=== PATIENT | female | born 1995 | race Caucasian/White ===

== ENCOUNTER 2018-12-11 20:05 | Emergency (ER) | payer SELFPAY ==
[2018-12-11] MEDS ORDERED: Lidocaine 1% 20 ML MDV INJECT ONE (20:06)
--- NOTE | 2018-12-11 21:05 | EDM.PDOC ---
ED HPI GENERAL MEDICAL PROBLEM - General Chief Complaint: Laceration Stated Complaint: CUT L LOWER LEG Time Seen by Provider: 12/11/18 20:45 Source of Information: Reports: Patient History Limitations: Reports: No Limitations - History of Present Illness INITIAL COMMENTS - FREE TEXT/NARRATIVE: Awilda comes into [facility] ED with a minor laceration to the L lower leg. She was sawing some wood when the saw slipped and injured to L leg. There is FROM, CMS intact, last tetanus vax 3 years ago. L medial ankle Pain Score (Numeric/FACES): 2 - Related Data Allergies Allergy/AdvReac Type Severity Reaction Status Date / Time No Known Allergies Allergy Verified 12/11/18 20:29 Home Meds: Home Meds Albuterol Sulfate [Proventil Hfa] 2 puff IH Q4H PRN 03/25/16 [History] Multivitamin [Gummi Bear Multivitamin] 1 tab PO DAILY 03/25/16 [History] Tetrahydrozoline HCl [Visine] 2 drop EYEBOTH WEEKLY PRN 03/25/16 [History] Past Medical History - Past Health History Medical/Surgical History: Denies Medical/Surgical History HEENT History: Reports: Impaired Vision Cardiovascular History: Reports: Other (See Below) Other Cardiovascular History: Irregular heart rate Respiratory History: Reports: Asthma Gastrointestinal History: Reports: GERD Other Gastrointestinal History: upper abdominal pain Genitourinary History: Reports: Other (See Below) Other Genitourinary History: has to void but can't 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: Neurological History: Reports: Migraines Psychiatric History: Reports: Anxiety, Depression, Learning Disability Other Psychiatric History: dyslexia Endocrine/Metabolic History: Reports: Obesity/BMI 30+ - Infectious Disease History Infectious Disease History: Reports: None - Past Surgical History HEENT Surgical History: Reports: Adenoidectomy, Myringotomy w Tube(s), Oral Surgery, Tonsillectomy Respiratory Surgical History: Reports: None GI Surgical History: Reports: Cholecystectomy Social & Family History - Family History Family Medical History: Noncontributory HEENT: Reports: Impaired Vision Respiratory: Reports: COPD GI: Reports: Other (See Below) Other GI Family History: Father has a colostomy for colon CA : Reports: Other (See Below) Other Family History: Father has a urostomy for bladder CA Neurological: Reports: Seizure Endocrine/Metabolic: Reports: Diabetes, Type I, Diabetes, type II Oncologic: Reports: Bladder, Colon, Thyroid - Tobacco Use Smoking Status *Q: Never Smoker - Caffeine Use Caffeine Use: Reports: None - Recreational Drug Use Recreational Drug Use: No ED ROS GENERAL - Review of Systems Review Of Systems: ROS reveals no pertinent complaints other than HPI. ED EXAM, SKIN/RASH Exam: See Below Exam Limited By: No Limitations General Appearance: Alert, WD/WN, No Apparent Distress Head: Atraumatic, Normocephalic Neck: Normal Inspection Respiratory/Chest: Lungs Clear Cardiovascular: Regular Rate, Rhythm Back Exam: Normal Inspection Extremities: Normal Range of Motion, Other (1.2 cm laceration to the lower L leg , no active bleeding) Neurological: Alert, Oriented, CN II-XII Intact, Normal Cognition, Normal Gait, No Motor/Sensory Deficits Psychiatric: Normal Affect, Normal Mood Skin: Warm, Dry, Normal Color, Wound/Incision (1.2 cm laceration to L lower leg) ED SKIN PROCEDURES - Laceration/Wound Repair Left Lower Midline Leg Lac/Wound length In cm: 1.2 Appearance: Linear, Clean Distal NVT: Neuro & Vascular Intact Anesthetic Type: Local Local Anesthesia - Lidocaine (Xylocaine): 1% Plain Local Anesthetic Volume: 3cc Skin Prep: Chlorhexidine (Hibiciens) Exploration/Debridement/Repair: Wound Explored, No Foreign Material Found Closed with: Sutures Suture Size: 4-0 # of Sutures: 3 Suture Type: Nylon, Interrupted, Simple Drain Placement: No Sterile Dressing Applied: Nurse Tetanus Status Addressed: Yes Complications: No Course - Vital Signs Text/Narrative:: Patient tolerated procedure well. Last Recorded V/S: Last Vital Signs Temp 36.6 C 12/11/18 20:20 Pulse 95 12/11/18 20:20 Resp 18 12/11/18 20:20 BP 147/82 H 12/11/18 20:20 Pulse Ox 99 12/11/18 20:20 Departure - Departure Time of Disposition: 21:04 Disposition: Home, Self-Care 01 Condition: Good Clinical Impression: Laceration of left lower leg Qualifiers: Encounter type: initial encounter Qualified Code(s): S81.812A - Laceration without foreign body, left lower leg, initial encounter - Discharge Information *PRESCRIPTION DRUG MONITORING PROGRAM REVIEWED*: Not Applicable *COPY OF PRESCRIPTION DRUG MONITORING REPORT IN PATIENT EVELINA: Not Applicable - Problem List & Annotations (1) Laceration of left lower leg SNOMED Code(s): 157226076 Code(s): S81.812A - LACERATION WITHOUT FOREIGN BODY, LEFT LOWER LEG, INIT ENCNTR Status: Acute Current Visit: Yes Annotation/Comment:: Routine wound cares, SR in 10 days. - Problem List Review Problem List Initiated/Reviewed/Updated: Yes - Assessment/Plan Plan: Follow up with PCP in 10 days.
[2018-12-11 21:22] VITALS: BP 132/83
== END 2018-12-11 21:14 | disposition home or self-care (01) ==
LOC: FB.ED 20:05
DX: S81.812A Laceration without foreign body, left lower leg, initial encounter (principal); J45.909 Unspecified asthma, uncomplicated; F41.9 Anxiety disorder, unspecified; F32.9 Major depressive disorder, single episode, unspecified; Z79.899 Other long term (current) drug therapy; W22.8XXA Striking against or struck by other objects, initial encounter
CPT/HCPCS: 12001; 12011; 99282; J2001

== ENCOUNTER 2019-03-20 11:38 | Emergency (ER) | payer MEDICAID, OTHER ==
[2019-03-20 12:09] VITALS: BP 150/80; PULSE 82
[2019-03-20] MEDS ORDERED: Ondansetron 4 MG Tab.DIS PO ONE (12:30)
[2019-03-20] MEDS ORDERED: Atropine/Diphenoxylate 0.025-2.5 MG Tab PO ONE (12:30)
--- NOTE | 2019-03-20 12:39 | EDM.PDOC ---
ED HPI GENERAL MEDICAL PROBLEM - General Chief Complaint: Abdominal Pain Stated Complaint: VOMITTING, DIARREA Time Seen by Provider: 03/20/19 12:20 Source of Information: Reports: Patient, Family History Limitations: Reports: No Limitations - History of Present Illness INITIAL COMMENTS - FREE TEXT/NARRATIVE: Awilda comes into [facility] ED with a 3 day hx of diarrhea and some vomiting. There has been some epigastric discomfort that waxes and wanes, and remains anterior in location. There is no known exposure, no visible BRB or mucous in the stools , or BRB in the emesis of partially digested foods and beverages. Her family is asx. [facility] for epigastric sxs, and advised Prilosec OTC for 2 weeks which did help. Bilateral Abdomen Pain Score (Numeric/FACES): 9 - Related Data Allergies Allergy/AdvReac Type Severity Reaction Status Date / Time No Known Allergies Allergy Verified 12/11/18 20:29 Home Meds: Home Meds Albuterol Sulfate [Proventil Hfa] 2 puff IH Q4H PRN 03/25/16 [History] Multivitamin [Gummi Bear Multivitamin] 1 tab PO DAILY 03/25/16 [History] Tetrahydrozoline HCl [Visine] 2 drop EYEBOTH WEEKLY PRN 03/25/16 [History] Omeprazole 20 mg PO DAILY 03/20/19 [History] Ondansetron [Zofran ODT] 4 mg PO Q6H PRN #14 tab.dis 03/20/19 [Rx] Past Medical History - Past Health History Medical/Surgical History: Denies Medical/Surgical History HEENT History: Reports: Impaired Vision Cardiovascular History: Reports: Other (See Below) Other Cardiovascular History: Irregular heart rate Respiratory History: Reports: Asthma Gastrointestinal History: Reports: GERD Other Gastrointestinal History: upper abdominal pain Genitourinary History: Reports: Other (See Below) Other Genitourinary History: has to void but can't 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 UNCLAIMED PROPERTY MANAGER History: Neurological History: Reports: Migraines Psychiatric History: Reports: Anxiety, Depression, Learning Disability Other Psychiatric History: dyslexia Endocrine/Metabolic History: Reports: Obesity/BMI 30+ - Infectious Disease History Infectious Disease History: Reports: None - Past Surgical History HEENT Surgical History: Reports: Adenoidectomy, Myringotomy w Tube(s), Oral Surgery, Tonsillectomy Respiratory Surgical History: Reports: None GI Surgical History: Reports: Cholecystectomy Social & Family History - Family History Family Medical History: Noncontributory HEENT: Reports: Impaired Vision Respiratory: Reports: COPD GI: Reports: Other (See Below) Other GI Family History: Father has a colostomy for colon CA : Reports: Other (See Below) Other Family History: Father has a urostomy for bladder CA Neurological: Reports: Seizure Endocrine/Metabolic: Reports: Diabetes, Type I, Diabetes, type II Oncologic: Reports: Bladder, Colon, Thyroid - Caffeine Use Caffeine Use: Reports: None ED ROS GENERAL - Review of Systems Review Of Systems: See Below Constitutional: Reports: Malaise, Decreased Appetite HEENT: Reports: No Symptoms Respiratory: Reports: No Symptoms Cardiovascular: Reports: No Symptoms Endocrine: Reports: No Symptoms GI/Abdominal: Reports: Abdominal Pain, Diarrhea, Decreased Appetite, Vomiting : Reports: No Symptoms Musculoskeletal: Reports: No Symptoms Skin: Reports: No Symptoms Neurological: Reports: No Symptoms Hematologic/Lymphatic: Reports: No Symptoms Immunologic: Reports: No Symptoms ED EXAM, GI/ABD - Physical Exam Exam: See Below Exam Limited By: No Limitations General Appearance: Alert, WD/WN, No Apparent Distress, Obese Eyes: Bilateral: Normal Appearance, EOMI Ears: Normal External Exam Nose: Normal Inspection Throat/Mouth: Normal Inspection, Normal Oropharynx, Normal Voice Head: Normocephalic Neck: Normal Inspection, Supple, Non-Tender, Full Range of Motion Respiratory/Chest: Lungs Clear, Normal Breath Sounds Cardiovascular: Regular Rate, Rhythm, No Murmur GI/Abdominal Exam: Normal Bowel Sounds, Soft, No Organomegaly, No Distention, No Mass, Tender (mild epigastric tenderness) (Female) Exam: Deferred Rectal (Female) Exam: Deferred Back Exam: Normal Inspection Extremities: Normal Inspection Neurological: Alert, Oriented, CN II-XII Intact, Normal Cognition, Normal Gait, No Motor/Sensory Deficits Psychiatric: Normal Affect, Normal Mood Skin Exam: Warm, Dry, Intact, Normal Color, No Rash Lymphatic: No Adenopathy Course - Vital Signs Text/Narrative:: Following assessment at the ED, I administered Zofran ODT 4 mg SL and Lomotil 2.5 mg tab po pending results of screening labwork, all baseline. She voided twice during the ED visit, but experienced no further stooling. Findings appear consistent with GE at this time. Last Recorded V/S: Last Vital Signs Temp 36.8 C 03/20/19 11:45 Pulse 82 03/20/19 11:45 Resp 18 03/20/19 11:45 BP 150/80 H 03/20/19 11:45 Pulse Ox 98 03/20/19 11:45 - Orders/Labs/Meds Orders: Active Orders 24 hr Category Date Time Status AMYLASE [CHEM] Stat Lab 03/20/19 13:36 Ordered OCCULT BLOOD SCREEN [OP] Stat Lab 03/20/19 12:31 Ordered Labs: Laboratory Tests 03/20/19 03/20/19 03/20/19 Range/Units 12:55 13:05 13:05 WBC 8.2 (4.5-12.0) X10-3/uL RBC 5.03 (3.23-5.20) x10(6)uL Hgb 15.9 H (11.5-15.5) g/dL Hct 46.6 (30.0-51.3) % MCV 92.5 (80-96) fL MCH 31.5 (27.7-33.6) pg MCHC 34.1 (32.2-35.4) g/dL RDW 12.1 (11.5-15.5) % Plt Count 352 (125-369) X10(3)uL MPV 7.9 (7.4-10.4) fL Neut % (Auto) 59.5 (46-82) % Lymph % (Auto) 27.7 (13-37) % Mc[place]osh % (Auto) 9.0 (4-12) % Eos % (Auto) 4 (1.0-5.0) % Baso % (Auto) 0 (0-2) % Neut # (Auto) 4.8 (1.6-8.3) # Lymph # (Auto) 2.3 (0.6-5.0) # Mcintosh # (Auto) 0.7 (0.0-1.3) # Eos # (Auto) 0.3 (0.0-0.8) # Baso # (Auto) 0.0 (0.0-0.2) # Sodium 142 (135-145) mmol/L Potassium 4.0 (3.5-5.3) mmol/L Chloride 104 (100-110) mmol/L Carbon Dioxide 28 (21-32) mmol/L BUN 13 (7-18) mg/dL Creatinine 0.8 (0.55-1.02) mg/dL Est Cr Clr Drug Dosing 85.02 mL/min Estimated GFR (MDRD) > 60 (>60) BUN/Creatinine Ratio 16.3 (9-20) Glucose 97 (80-116) mg/dL Calcium 9.7 (8.6-10.2) mg/dL C-Reactive Protein (0.5-0.9) mg/dL HCG, Quant (<5) mIU/mL Urine Color Yellow (YELLOW) Urine Appearance Slightly cloudy (CLEAR) Urine pH 5.0 (5.0-6.5) Ur Specific [place] 1.020 (1.010-1.025) Urine Protein Negative (NEGATIVE) mg/dL Urine Glucose (UA) Normal (NORMAL) mg/dL Urine Ketones Negative (NEGATIVE) mg/dL Urine Occult Blood Negative (NEGATIVE) Urine Nitrite Negative (NEGATIVE) Urine Bilirubin Negative (NEGATIVE) Urine Urobilinogen Normal (NEGATIVE) mg/dL Ur Leukocyte Esterase Moderate H (NEGATIVE) Urine RBC 0-5 (0-5) Urine WBC 5-10 H (0-5) Ur Squamous Epith Cells Moderate H (NS,R,O) Urine Bacteria Few H (NS) 03/20/19 03/20/19 Range/Units 13:05 13:05 WBC (4.5-12.0) X10-3/uL RBC (3.23-5.20) x10(6)uL Hgb (11.5-15.5) g/dL Hct (30.0-51.3) % MCV (80-96) fL MCH (27.7-33.6) pg MCHC (32.2-35.4) g/dL RDW (11.5-15.5) % Plt Count (125-369) X10(3)uL MPV (7.4-10.4) fL Neut % (Auto) (46-82) % Lymph % (Auto) (13-37) % [place]osh % (Auto) (4-12) % Eos % (Auto) (1.0-5.0) % Baso % (Auto) (0-2) % Neut # (Auto) (1.6-8.3) # Lymph # (Auto) (0.6-5.0) # Mcintosh # (Auto) (0.0-1.3) # Eos # (Auto) (0.0-0.8) # Baso # (Auto) (0.0-0.2) # Sodium (135-145) mmol/L Potassium (3.5-5.3) mmol/L Chloride (100-110) mmol/L Carbon Dioxide (21-32) mmol/L BUN (7-18) mg/dL Creatinine (0.55-1.02) mg/dL Est Cr Clr Drug Dosing mL/min Estimated GFR (MDRD) (>60) BUN/Creatinine Ratio (9-20) Glucose (80-116) mg/dL Calcium (8.6-10.2) mg/dL C-Reactive Protein < 0.2 L (0.5-0.9) mg/dL HCG, Quant < 5 L (<5) mIU/mL Urine Color (YELLOW) Urine Appearance (CLEAR) Urine pH (5.0-6.5) Ur Specific [place] (1.010-1.025) Urine Protein (NEGATIVE) mg/dL Urine Glucose (UA) (NORMAL) mg/dL Urine Ketones (NEGATIVE) mg/dL Urine Occult Blood (NEGATIVE) Urine Nitrite (NEGATIVE) Urine Bilirubin (NEGATIVE) Urine Urobilinogen (NEGATIVE) mg/dL Ur Leukocyte Esterase (NEGATIVE) Urine RBC (0-5) Urine WBC (0-5) Ur Squamous Epith Cells (NS,R,O) Urine Bacteria (NS) Meds: Medications Discontinued Medications Generic Name Dose Route Start Last Admin Trade Name Freq PRN Reason Stop Dose Admin Diphenoxylate HCl/Atropine 1 tab 03/20/19 12:30 03/20/19 12:39 Lomotil 0.025-2.5 Mg PO 03/20/19 12:31 1 tab ONETIME ONE Administration Ondansetron HCl 4 mg 03/20/19 12:30 03/20/19 12:36 Zofran Odt PO 03/20/19 12:31 4 mg ONETIME ONE Administration Departure - Departure Time of Disposition: 13:56 Disposition: Home, Self-Care 01 Condition: Good Clinical Impression: Gastroenteritis - Discharge Information *PRESCRIPTION DRUG MONITORING PROGRAM REVIEWED*: Not Applicable *COPY OF PRESCRIPTION DRUG MONITORING REPORT IN PATIENT EVELINA: Not Applicable Prescriptions: Ondansetron [Zofran ODT] 4 mg PO Q6H PRN #14 tab.dis PRN Reason: Nausea/Vomiting Referrals: PCP,None [Primary Care Provider] - Forms: ED Department Discharge - Problem List & Annotations (1) Gastroenteritis SNOMED Code(s): 38061914 Code(s): K52.9 - NONINFECTIVE GASTROENTERITIS AND COLITIS, UNSPECIFIED Status: Acute Current Visit: Yes Annotation/Comment:: I dispensed Zofran ODT 4 mg for nausea and vomiting, consider Imodium tabs for diarrhea, and may continue Prilosec OTC 20 mg as directed for GERD. Hydration is suggested in the interim. - Problem List Review Problem List Initiated/Reviewed/Updated: Yes - My Orders Last 24 Hours: My Active Orders 03/20/19 12:31 OCCULT BLOOD SCREEN [OP] Stat 03/20/19 13:36 AMYLASE [CHEM] Stat - Assessment/Plan Last 24 Hours: My Active Orders 03/20/19 12:31 OCCULT BLOOD SCREEN [OP] Stat 03/20/19 13:36 AMYLASE [CHEM] Stat Plan: Follow up with PCP if needed or sxs persist.
== END 2019-03-20 14:10 | disposition home or self-care (01) ==
LOC: FB.ED 11:38
DX: K52.9 Noninfective gastroenteritis and colitis, unspecified (principal); J45.909 Unspecified asthma, uncomplicated; K21.9 Gastro-esophageal reflux disease without esophagitis; F41.9 Anxiety disorder, unspecified; F32.9 Major depressive disorder, single episode, unspecified; E66.9 Obesity, unspecified; Z68.37 Body mass index [BMI] 37.0-37.9, adult; Z79.899 Other long term (current) drug therapy
CPT/HCPCS: 36415; 80048; 81001; 82150; 84702; 85025; 86140; 99282; A9270; 99284

== ENCOUNTER 2019-04-12 19:33 | Emergency (ER) | payer MEDICAID, OTHER ==
--- NOTE | 2019-04-12 19:57 | EDM.PDOC ---
ED HPI GENERAL MEDICAL PROBLEM - General Stated Complaint: CHEST PAIN Time Seen by Provider: 04/12/19 19:54 Source of Information: Reports: Patient History Limitations: Reports: No Limitations - History of Present Illness INITIAL COMMENTS - FREE TEXT/NARRATIVE: This a 24-year-old female complaining of retrosternal chest pain. Moderate pain but reduce it back deficit help, maybe related to exertion and lifting in a new [employer] job that she started 2 days ago. She denies headache shortness of breath fever or chills. She is previously healthy, does not smoke and does not take any prescriptions including oral contraceptives. mid chest Pain Score (Numeric/FACES): 7 - Related Data Allergies Allergy/AdvReac Type Severity Reaction Status Date / Time No Known Allergies Allergy Verified 04/12/19 20:18 Home Meds: Home Meds Albuterol Sulfate [Proventil Hfa] 2 puff IH Q4H PRN 03/25/16 [History] Multivitamin [Gummi Bear Multivitamin] 1 tab PO DAILY 03/25/16 [History] Tetrahydrozoline HCl [Visine] 2 drop EYEBOTH WEEKLY PRN 03/25/16 [History] Omeprazole 20 mg PO DAILY 03/20/19 [History] Ondansetron [Zofran ODT] 4 mg PO Q6H PRN #14 tab.dis 03/20/19 [Rx] Past Medical History - Past Health History Medical/Surgical History: Denies Medical/Surgical History HEENT History: Reports: Impaired Vision Cardiovascular History: Reports: Other (See Below) Other Cardiovascular History: Irregular heart rate Respiratory History: Reports: Asthma Gastrointestinal History: Reports: GERD Other Gastrointestinal History: upper abdominal pain Genitourinary History: Reports: Other (See Below) Other Genitourinary History: has to void but can't 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: Neurological History: Reports: Migraines Psychiatric History: Reports: Anxiety, Depression, Learning Disability Other Psychiatric History: dyslexia Endocrine/Metabolic History: Reports: Obesity/BMI 30+ - Infectious Disease History Infectious Disease History: Reports: None - Past Surgical History HEENT Surgical History: Reports: Adenoidectomy, Myringotomy w Tube(s), Oral Surgery, Tonsillectomy Respiratory Surgical History: Reports: None GI Surgical History: Reports: Cholecystectomy Social & Family History - Family History Family Medical History: Noncontributory HEENT: Reports: Impaired Vision Respiratory: Reports: COPD GI: Reports: Other (See Below) Other GI Family History: Father has a colostomy for colon CA : Reports: Other (See Below) Other Family History: Father has a urostomy for bladder CA Neurological: Reports: Seizure Endocrine/Metabolic: Reports: Diabetes, Type I, Diabetes, type II Oncologic: Reports: Bladder, Colon, Thyroid - Caffeine Use Caffeine Use: Reports: None ED ROS GENERAL - Review of Systems Review Of Systems: ROS reveals no pertinent complaints other than HPI. ED EXAM, GENERAL - Physical Exam Exam: See Below Exam Limited By: No Limitations General Appearance: Alert, WD/WN Ears: Normal External Exam Ear Exam: Bilateral Ear: Auricle Normal, Canal Normal, TM normal Head: Atraumatic Neck: Normal Inspection Respiratory/Chest: No Respiratory Distress, Normal Breath Sounds, No Accessory Muscle Use, Other (Tender sternum on palpation). No: Respiratory Distress, Rhonchi, Splinting Cardiovascular: Normal Peripheral Pulses GI/Abdominal: Normal Bowel Sounds Psychiatric: Normal Affect Skin Exam: Warm EKG INTERPRETATION Rhythm: NSR Course - Vital Signs Last Recorded V/S: Last Vital Signs Temp 98.0 F 04/12/19 19:33 Pulse 75 04/12/19 19:33 Resp 14 04/12/19 19:33 BP 121/66 04/12/19 19:33 Pulse Ox 98 04/12/19 19:33 - Orders/Labs/Meds Orders: Active Orders 24 hr Category Date Time Status EKG Documentation Completion [RC] ASDIRECTED Care 04/12/19 19:54 Active EKG Documentation Completion [RC] ASDIRECTED Care 04/12/19 19:54 Active CXR [Chest 2V] [CR] Stat Exams 04/12/19 19:57 Ordered Chest 1V Frontal [CR] Stat Exams 04/12/19 19:53 Stop Req EKG 12 Lead [EK] Routine Ther 04/12/19 19:54 Ordered Labs: Laboratory Tests 04/12/19 04/12/19 04/12/19 Range/Units 20:00 20:00 20:00 WBC 12.0 (4.5-12.0) X10-3/uL RBC 4.92 (3.23-5.20) x10(6)uL Hgb 15.0 (11.5-15.5) g/dL Hct 44.9 (30.0-51.3) % MCV 91.2 (80-96) fL MCH 30.5 (27.7-33.6) pg MCHC 33.4 (32.2-35.4) g/dL RDW 11.7 (11.5-15.5) % Plt Count 122 L (125-369) X10(3)uL MPV 8.3 (7.4-10.4) fL Neut % (Auto) 49.4 (46-82) % Lymph % (Auto) 37.4 H (13-37) % [place] % (Auto) 8.5 (4-12) % Eos % (Auto) 4 (1.0-5.0) % Baso % (Auto) 1 (0-2) % Neut # (Auto) 5.9 (1.6-8.3) # Lymph # (Auto) 4.5 (0.6-5.0) # [place] # (Auto) 1.0 (0.0-1.3) # Eos # (Auto) 0.5 (0.0-0.8) # Baso # (Auto) 0.1 (0.0-0.2) # D-Dimer, Quantitative (0.0-0.59) mg/LFEU Sodium 140 (135-145) mmol/L Potassium 3.6 (3.5-5.3) mmol/L Chloride 104 (100-110) mmol/L Carbon Dioxide 27 (21-32) mmol/L BUN 17 (7-18) mg/dL Creatinine 1.0 (0.55-1.02) mg/dL Est Cr Clr Drug Dosing 68.02 mL/min Estimated GFR (MDRD) > 60 (>60) BUN/Creatinine Ratio 17.0 (9-20) Glucose 96 (80-116) mg/dL Calcium 9.2 (8.6-10.2) mg/dL Total Bilirubin 0.5 (0.1-1.3) mg/dL AST 19 (5-25) IU/L ALT 43 H (12-36) U/L Alkaline Phosphatase 61 (56-112) IU/L Troponin I < 0.017 L (<0.017-0.056) ng/mL Total Protein 7.3 (6.0-8.0) g/dL Albumin 3.9 (3.5-5.2) g/dL Globulin 3.4 g/dL Albumin/Globulin Ratio 1.2 04/12/19 Range/Units 20:00 WBC (4.5-12.0) X10-3/uL RBC (3.23-5.20) x10(6)uL Hgb (11.5-15.5) g/dL Hct (30.0-51.3) % MCV (80-96) fL MCH (27.7-33.6) pg MCHC (32.2-35.4) g/dL RDW (11.5-15.5) % Plt Count (125-369) X10(3)uL MPV (7.4-10.4) fL Neut % (Auto) (46-82) % Lymph % (Auto) (13-37) % [place] % (Auto) (4-12) % Eos % (Auto) (1.0-5.0) % Baso % (Auto) (0-2) % Neut # (Auto) (1.6-8.3) # Lymph # (Auto) (0.6-5.0) # [place] # (Auto) (0.0-1.3) # Eos # (Auto) (0.0-0.8) # Baso # (Auto) (0.0-0.2) # D-Dimer, Quantitative 0.21 (0.0-0.59) mg/LFEU Sodium (135-145) mmol/L Potassium (3.5-5.3) mmol/L Chloride (100-110) mmol/L Carbon Dioxide (21-32) mmol/L BUN (7-18) mg/dL Creatinine (0.55-1.02) mg/dL Est Cr Clr Drug Dosing mL/min Estimated GFR (MDRD) (>60) BUN/Creatinine Ratio (9-20) Glucose (80-116) mg/dL Calcium (8.6-10.2) mg/dL Total Bilirubin (0.1-1.3) mg/dL AST (5-25) IU/L ALT (12-36) U/L Alkaline Phosphatase (56-112) IU/L Troponin I (<0.017-0.056) ng/mL Total Protein (6.0-8.0) g/dL Albumin (3.5-5.2) g/dL Globulin g/dL Albumin/Globulin Ratio Departure - Departure Time of Disposition: 20:34 Disposition: Home, Self-Care 01 Condition: Good Clinical Impression: Atypical chest pain Referrals: PCP,None [Primary Care Provider] - - Problem List & Annotations (1) Atypical chest pain SNOMED Code(s): 849953598 Code(s): R07.89 - OTHER CHEST PAIN Status: Acute Current Visit: Yes - Problem List Review Problem List Initiated/Reviewed/Updated: Yes - My Orders Last 24 Hours: My Active Orders 04/12/19 19:53 Chest 1V Frontal [CR] Stat 04/12/19 19:54 EKG Documentation Completion [RC] ASDIRECTED EKG Documentation Completion [RC] ASDIRECTED EKG 12 Lead [EK] Routine 04/12/19 19:57 CXR [Chest 2V] [CR] Stat - Assessment/Plan Last 24 Hours: My Active Orders 04/12/19 19:53 Chest 1V Frontal [CR] Stat 04/12/19 19:54 EKG Documentation Completion [RC] ASDIRECTED EKG Documentation Completion [RC] ASDIRECTED EKG 12 Lead [EK] Routine 04/12/19 19:57 CXR [Chest 2V] [CR] Stat Plan: CXR and all labs were negative. So was EKG. I discharged her,advised on NSAIDs. It odes sound musculoskeletal
[2019-04-12 21:05] VITALS: BP 118/74; PULSE 76
--- NOTE | 2019-04-13 10:31 | CR ---
INDICATION: Chest pain. CHEST: PA and lateral views of the chest were obtained 04/12/19 - no comparisons. The heart, mediastinum, and bony thorax were unremarkable. Overlying EKG leads are noted. An active infiltrate or effusion was not identified. Evidence of exogenous obesity is noted. IMPRESSION: No acute process. Report was called to Dr. Mondragon at approximately 2105 hours on 04/12/19. [facility]
== END 2019-04-12 20:47 | disposition home or self-care (01) ==
LOC: FB.ED 19:33
DX: R07.89 Other chest pain (principal); K21.9 Gastro-esophageal reflux disease without esophagitis; F41.9 Anxiety disorder, unspecified; F32.9 Major depressive disorder, single episode, unspecified; J45.909 Unspecified asthma, uncomplicated; E66.9 Obesity, unspecified; Z68.37 Body mass index [BMI] 37.0-37.9, adult; Z79.899 Other long term (current) drug therapy
CPT/HCPCS: 36415; 71046; 80053; 84484; 85025; 85379; 93005; 93010; 99284; 99285-25

== ENCOUNTER → 2019-07-25 | Outpatient (CLI) | payer OTHER, SELFPAY | LOC: FB.CLBR 16:33 | PROVIDERS: ATTEND Nurse Practitioner Family | DX: R30.0 Dysuria (principal) | CPT/HCPCS: 81001 ==

== ENCOUNTER 2023-11-20 15:11 | Emergency (ER) | payer MEDICAID ==
[2023-11-20] MEDS: Ibuprofen 600 MG Tab PO ONE (16:53)
[2023-11-20 16:55] VITALS: BP 157/79; PULSE 90
== END 2023-11-20 16:55 | disposition home or self-care (01) ==
LOC: FB.ED 15:11
DX: S93.401A Sprain of unspecified ligament of right ankle, initial encounter (principal); S93.601A Unspecified sprain of right foot, initial encounter; Z90.49 Acquired absence of other specified parts of digestive tract; W10.8XXA Fall (on) (from) other stairs and steps, initial encounter
CPT/HCPCS: 73610-RT; 73630-RT; 99283; A9270-GY

== ENCOUNTER 2024-05-27 17:01 | Emergency (ER) | payer SELFPAY ==
[2024-05-27] MEDS ORDERED: Lidocaine 1% 5 ML VIAL INFILT ONE (17:02)
[2024-05-27] MEDS: Diphtheria,Pertussis(Acell),Tetanus Vaccine 0.5 ML Syringe IM ONE (18:35)
[2024-05-27 19:28] VITALS: BP 130/81; PULSE 85
== END 2024-05-27 19:11 | disposition home or self-care (01) ==
LOC: FB.ED 17:01
DX: S01.01XA Laceration without foreign body of scalp, initial encounter (principal); S09.90XA Unspecified injury of head, initial encounter; E66.9 Obesity, unspecified; Z23 Encounter for immunization; W29.8XXA Contact with other powered hand tools and household machinery, initial encounter
CPT/HCPCS: 12002; 70450; 90471; 90715; 99283-25

== ENCOUNTER 2025-05-07 20:43 | Emergency (ER) | payer BC, MEDICAID ==
[2025-05-07 21:43] VITALS: BP 127/82; PULSE 82
== END 2025-05-07 21:38 | disposition home or self-care (01) ==
LOC: FB.ED 20:43
DX: S81.012A Laceration without foreign body, left knee, initial encounter (principal); W20.8XXA Other cause of strike by thrown, projected or falling object, initial encounter
CPT/HCPCS: 12002; 99282